=== PATIENT | female | born 1975 | race Caucasian/White ===

== ENCOUNTER → 2018-10-22 13:19 | Outpatient (CLI) | payer BC, SELFPAY ==
[2018-10-22 13:33] LABS: Internal QC Validated? YES +Cl - CLEAR BKGD; Pregnancy, Urine Negative Negative
== END ==
PROVIDERS: Family Provider Family Medicine; PCP Family Medicine; Referring Provider Internal Medicine Hematology & Oncology; Visit Provider Internal Medicine Hematology & Oncology
DX: C90.00 Multiple myeloma not having achieved remission (principal)
CPT/HCPCS: 81025

== ENCOUNTER 2019-08-18 13:00 | Outpatient (RCR) | payer BC, SELFPAY ==
--- NOTE | 2019-07-15 11:39 | HP.PTEVAL_ITS ---
Patient's Visit Information BARRERA TREJO is a 44 year old F referred to Physical Therapy by KYUNG ROPER with a diagnosis of COMPRESSION FRACTURE OF BODY OF THORACIC SPINE,MUTIPLE MYELOMA REMISSION. Date of Evaluation: 07/15/19 Physical Therapist: Phillip Harris, PT, Cert MDT, OCS - Visit Plan Frequency: 2x /Week Duration: 4 Weeks Plan: PRECAUTION AVOID FLEXION COMPREESSION FRACTURE,AND MUTLIPLE MYELOMA IN REMISSION -NO MODALITIES. PT INTERVENTION DLS,THORACIC STRENGTHENING,POSTURAL EX'S,LE STRENGTHENING - Subjective Findings: This 44 y/o female presents to physical therapy with compression fracture of thoracic spine and mutiple myeloma remission. Patient developed compression fracture Aug 2017 going steps had severe pain thoracic. Patient eventually had MRI showed T12 compression fracture and showed the multipe myeloma. Pain presisted over time but symptoms aggraveted housework ,bending lifing,leaning over doing ADL'S. Symptoms better with MEDS and rest. Seen Dr Salcido okay to try strengthening. Once patient recieved raditaion/chemo multiple myeloma in remission but conts to take revelimid. C/O parathesia fingers from chemo. Coughing/sneezing -. Bowel/bladder-.Patient condtion affects ADLS' and housework tasks.Patient sleeping okay. Patient condition affects QOL and function. 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 SOCIAL: - Pain Bilateral Back Pain Intensity (Out of 10): 4 Pain Intensity Range: 10 - Objective POSTURE: mild foward posture. NEURO: denies parathesia/tingling. PALAPTION: tender paraspinals thoracic. GAIT: reciprocal pattern. AROM: BUE WFL. MMT: BUE 4/5, BLE quads/hams 4-/5,hip flexion /abd 4-/5,ankle 4/5. LUMBAR ROM: flexion min/mod loss,extension mi loss,side glide min loss. FLEXABLITY : hams min tight - Special Tests L/S Slump test left side: Negative L/S Slump test right side: Negative L/S Left Straight Leg Raise: Negative L/S Right Straight Leg Raise: Negative - Goals Goal 1:: Independant with HEP Goal Time Frame: 4-6 Weeks Goal 2:: Patient to improve posture/body mechanics for ADL'S Goal Time Frame: 4-6 Weeks Goal 3:: Patient to decrease thoracic pain by 50% or > to improve QOL. Goal Time Frame: 4-6 Weeks Goal 4:: Patient to increase BLE strength -quads/hams/hip to 4/5 to improve function with gait. Goal Time Frame: 4-6 Weeks Goal 5:: Patient to improve back owesty score by 5 points or> to improve QOL Goal Time Frame: 4-6 Weeks - Rehabilitation Potential Physical Therapy Diagnosis: This patient had thotacic T12 compression fracture 2017 then found to have multiple myeloma with currents impairments with pain ,weakness ,LE weakness and impairs ADL'S and housework tasks. Rehabilitation Potential: Good - Anticipated Interventions Patient/Client Instruction: Educate patient on: Condition, Plan of Care For the Purpose of:: To decrease pain, To increase ROM, To improve muscle performance and motor function, To improve ability to perform ADL's, To increase tolerance to activity/condition/position, To improve ability of physical actions for home/community/work/leisure, To improve endurance, To improve ability to perform tasks related to life management Therapeutic Exercise to Include: Strength training, Body mechanics, Postural training, Scapular Strength/Stabilization Comment: THORACIC For the Purpose of:: To decrease pain, To improve muscle performance and motor function, To improve ability to perform ADL's, To increase tolerance to activity/condition/position, To improve performance and independence with ADL's, To improve ability of physical actions for home/community/work/leisure, To improve endurance, To improve ability to perform tasks related to life management Thank you for the opportunity to evaluate your patient. For Medicare and Medicare HMO plans, please review the plan of care and approve it. It will need to be FAXED BACK to us at [phone] for Medicare purposes. For Medicare only, by signing this I certify the plan of care. Please let me know if there are questions or concerns regarding this plan of care. Physician Signature: Date:
--- NOTE | 2019-08-18 13:40 | HP.PTDCSUM ---
HP - PT D/C Summary It has been my pleasure to treat BARRERA TREJO under orders from KYUNG ROPER, for the diagnosis of COMPRESSION FRACTURE OF BODY OF THORACIC SPINE,MUTIPLE MYELOMA REMISSION for a total of 9 visit(s). Discharge Date: 08/18/19 Please see the following information for a summary of their discharge status. - Subjective Subjective: Patient reports alot better ..Able to do ADL;s,job demnads.,housework tasks. - Pain Bilateral Back Pain Intensity (Out of 10): 1 - Overall Improvement % Improvement: 80 - Objective Objective/Function: POSTURE: mild foward posture. GAIT: reciprocal pattern. NEURO: INTACT. MMT: BLE 4/5,BUE 4/5. THORACIC ROM: MIN LOSS FLEXION/ROTATION ,MIN/MOD LOSS EXTENSION - Goals Goal 1:: Independant with HEP Goal Progress: Goal Met Goal 2:: Patient to improve posture/body mechanics for ADL'S Goal Progress: Goal Met Goal 3:: Patient to decrease thoracic pain by 50% or > to improve QOL. Goal Progress: Goal Met Goal 4:: Patient to increase BLE strength -quads/hams/hip to 4/5 to improve function with gait. Goal Progress: Goal Met Goal 5:: Patient to improve back owesty score by 5 points or> to improve QOL Goal Progress: Goal Met - Plan Plan: D/C TO HEP - D/C Information Discharge Comments: HEP If there are questions or concerns regarding this patient's physical therapy, please feel free to call me at [phone]. Thank you for the referral of this patient. Sincerely, Phillip Harris, PT, Cert MDT, OCS
== END 2019-08-18 19:00 | disposition home or self-care (01) ==
LOC: PT 13:00
PROVIDERS: Family Provider Family Medicine; PCP Family Medicine
DX: S22.000D Wedge compression fracture of unspecified thoracic vertebra, subsequent encounter for fracture with routine healing (principal); C90.00 Multiple myeloma not having achieved remission
CPT/HCPCS: 97110; 97162; 97530

== ENCOUNTER 2019-09-13 10:08 | Emergency (ER) | payer BC, SELFPAY ==
[2019-09-13 10:09] VITALS: BP 118/73; PULSE 114; RESP 17; TEMP 37.1; O2SAT 97; BMI 29.2
--- NOTE | 2019-09-13 10:24 | RAD_ITS ---
STUDY: X-RAY CHEST REASON FOR EXAM: Female, 44 years old. Fever after chemotherapy. TECHNIQUE: PA and lateral views of the chest. COMPARISON: Prior comparison studies are not available for review at this time. FINDINGS: There is mild patchy infiltrate in the left lower lobe. There is no demonstrated pleural abnormality. Normal size heart. Normal mediastinum and christopher. Normal visualized pulmonary arteries. Normal visualized aortic arch and descending thoracic aorta. Normal visualized thoracic spine. Normal visualized ribs, clavicles, and shoulders. There is no demonstrated abnormality of the visualized soft tissue structures of the upper abdomen. RAD/Chest PA and Lateral IMPRESSION: Mild left lower lobe infiltrate. Electronically Signed: Albin Paige MD at 11:12 EST Tel , Service support ,
--- NOTE | 2019-09-13 10:29 | ED.VISSUMM ---
- ER Visit Summary Date of Service: 09/13/19 Chief Complaint: [Fever] History of Present Illness: The patient is a 44 F [presents to the emergency department for fever that started last evening and was low-grade to 99. Patient states this morning temp over 100 and she took some Tylenol around 8 AM. Patient has had a slight cough. Patient had an episode of watery stool last evening and another one this morning. She denies any abdominal pain. She denies sore throat. She denies rashes. Patient currently being treated for multiple myeloma and her last oral chemo dose was 2 nights ago. Patient has a son at home that is had recent illness that they attributed was a viral URI. Patient denies dysuria.] Patient complains of dizziness this morning and not feeling well. Physical Examination: [HEENT-PERRLA, EOMI. Cranial nerves II through XII grossly intact. TMs clear. Mucous membranes moist. No adenopathy. No pharyngeal erythema. No exudates. Uvula midline. No trismus. Cardiovascular-regular rate and rhythm without murmur or ectopy Lungs-good aeration bilaterally. Patient has few rales in the left base. No tachypnea. No accessory muscle use or retractions. Abdomen-normoactive bowel sounds, soft, nontender, no rebound or rigidity, no peritoneal signs. Extremities-intact ?4, normal range of motion, normal pulses, atraumatic] Test Results: [CBC with differential obtained showing a 2.5, hemoglobin 11.9, hematocrit 35, platelets 70. Chemistries unremarkable other than a slight depressed potassium of 3.0. LFTs were slightly elevated with a total bilirubin of 2.1, alk phos 117, AST 50. Lactic acid was 0.9. Chest x-ray obtained showed a left lower lobe infiltrate. Urinalysis showed no signs of infection.] Emergency Department Course and Treatment: [Patient was treated with meropenem on arrival 1 g IV. Patient was started on Levaquin 750 mg IV. Case was discussed with Dr. John Cruz patient's oncologist. Will discuss case with hospitalist as well to evaluate for admission.] Treatment Plan: [Admit] Disposition: [Admit] Impression: [Pneumonia community-acquired and immune compromised patient] This note was generated with [employer] software. It may contain incorrect words, spelling, and punctuation that were not noted in review of the chart prior to signing ED Disposition - Plan for ED Patient: Referrals: Crystal Saha DO [Primary Care Provider] -
[2019-09-13 11:00] LABS: Absolute Lymphocyte Count 0.33 X10^3/uL (0.83-4.51); Absolute Neutrophil Count 2.1 X10^3/uL (2.0-7.7); Hematocrit 35.3 % (37-47); Hemoglobin 11.9 g/dL (12.0-15.0); Lymphocyte # 0.33 X10^3/ul (4.0); Mean Corp Hgb Conc 33.7 g/dL (32-36); Mean Corpuscular Hgb 33.2 pg (27.0-32.0); Mean Corpuscular Volume 98.6 fL (81-99); Mean Platelet Vol. 9.6 fl (6.2-12.0); Monocyte# 0.14 X10^3/uL; Monocyte% 5.5 % (0-10); NRBC Flagged by Analyzer 0 % (0-5); Neutrophil # 2.05 X10^3/uL (2.7-7.7); Neutrophil % 81.1 % (47-70); POSITIVE COUNT YES; POSITIVE DIFFERENTIAL YES; Platelet Count 70 K/mm3 (150-450); RBC Distribution Width CV 13.3 % (11.6-14.6); RBC Distribution Width SD 47.5 fl (35.1-43.9); Red Blood Count 3.58 M/mm3 (4.2-5.4); White Blood Count 2.5 K/mm3 (4.4-11.0)
[2019-09-13 11:01] LABS: Differential Indicated SCAN CRITERIA MET
[2019-09-13 11:06] LABS: Red Blood Cells-Urine 0 SEEN /hpf (0-5)
[2019-09-13 11:09] LABS: Color, Urine Yellow (Yellow); Glucose, Dipstick Normal (Normal); Ketone-Dipstick 50 mg/dl (Negative); Leukocyte Esterase-Dipstick 25 /ul (Negative); Nitrite-Dipstick Negative (Negative); Occult Blood-Urine 10 /ul (Negative); Protein-Dipstick 100 mg/dl (Negative); Urine Clarity Clear (Clear); Urine Urobilinogen 1 mg/dl (Normal)
[2019-09-13 11:12] LABS: Urine Bilirubin Dipstick 1 mg/dL (Negative)
[2019-09-13 11:13] LABS: ALB/GLOB Ratio 0.9 RATIO (0.9-2.4); AST(SGOT) 50 U/L (15-37); Alanine Aminotransfer ALT/SGPT 117 U/L (13-56); Albumin, Serum 3.7 g/dL (3.2-5.0); Alkaline Phosphatase 85 U/L (45-117); Anion Gap 10 (5-15); BUN 10 mg/dL (7-18); BUN/Creat Ratio 10.6 RATIO (10-20); Calcium,Total 8.3 mg/dL (8.5-10.1); Chloride 104 mmol/L (98-107); Creatinine, Serum 0.94 mg/dL (0.55-1.02); EST Glomerular Filtration Rate 68 mL/min (>60); Est Glom Filt Rate - Afr Amer 82 mL/min (>60); Estimated Creatinine Clearance 53.72 ml/min; Glucose 117 mg/dL (74-106); Protein, Total 7.7 g/dL (6.4-8.2); Sodium Level 136 mmol/L (136-145)
[2019-09-13] MEDS: 0.9% Normal Saline 1,000 ML 1000 ML IV (11:16)
[2019-09-13 11:17] LABS: Bacteria 1+ /hpf (None Seen); Mucous, Urine 1+ /hpf (<or=2+); Squamous Epithelial Cells - UA 0-5 SEEN /hpf (5-10); White Blood Cells 0-5 SEEN /hpf (0-5)
[2019-09-13 11:17] LABS: Lactic Acid 0.9 mmol/L (0.4-1.9)
[2019-09-13 11:19] LABS: Differential Comment SCANNED
[2019-09-13 11:20] LABS: Platelet Estimate MOD DEC (ADEQ)
[2019-09-13] MEDS: levoFLOXacin IV 750 MG/150 ML BAG 100 MG IV (11:27)
--- NOTE | 2019-09-13 12:15 | PCM.PN.HOSP ---
Subjective: 44-year-old female with a history of multiple myeloma. She is currently in remission and on maintenance therapy with Revlimid every 3 weeks with a 1 week break. She started feeling sick 24 to 48 hours ago. Initially was thought to be viral-like syndrome because her son is sick with a viral URI however last night she spiked a temperature to about 101.8 and she called her oncologist who called her in a prescription for Levaquin. However today she was feeling much weaker and decided to present to the ER, where she was found to be leukopenic with an absolute neutrophil count of 2.1 and a chest x-ray indicating a left lower lobe pneumonia. She also had some episodes of dizziness and watery diarrhea. She says she normally has loose stools on the Revlimid but this was more significant than her normal. She denies any significant cough, or abdominal pain. Vitals/I&O's: Vital Signs Temp Pulse Resp BP Pulse Ox 98.8 F 114 H 17 118/73 97 09/13/19 10:09/13/19 10:09/13/19 10:09/13/19 10:09/13/19 10:09 Oxygen Delivery Method Room Air Weight: 150 lb Body Mass Index (BMI) 29.2 General: Alert, Oriented x3, Cooperative, No apparent distress HEENT: Atraumatic, Normocephalic Neck: Supple Lungs: Normal air movement, No wheeze, Rhonchi - Left lower lobe Cardiovascular: Regular rate, Regular Rhythm, Normal S1, Normal S2, No murmurs Abdomen: Soft, Non Tender, Non-Distended, No Hepato-splenomegaly Extremities: No cyanosis, No edema Skin: - - There is a bruise on the left anterior tibia Neurological: Neuro grossly intact Psych/Mental Status: Normal Affect, Appropriate Microbiology Past 72 Hours 09/13/19 10:53 Mucosa - Nose Influenza Types A,B Direct FA (JUSTIN) - Final Laboratory Results 09/13/19 10:50: WBC 2.5 L, RBC 3.58 L, Hgb 11.9 L, Hct 35.3 L, MCV 98.6, MCH 33.2 H, MCHC 33.7, RDW Std Deviation 47.5 H, RDW Coeff of Alfa 13.3, Plt Count 70 L, MPV 9.6, Immature Gran % (Auto) 0.400, Neut % (Auto) 81.1 H, Lymph % (Auto) 13.0 L, [place] % (Auto) 5.5, Eos % (Auto) 0.0, Baso % (Auto) 0.0, Absolute Neuts (auto) 2.1, Absolute Lymphs (auto) 0.33 L, Nucleated RBC % 0, Differential Comment SCANNED, Platelet Estimate MOD DEC 09/13/19 10:50: Sodium 136, Potassium 3.0 L, Chloride 104, Carbon Dioxide 22.0, Anion Gap 10, BUN 10, Creatinine 0.94, Estim Creat Clear Calc 53.72, Est GFR (MDRD) Af Amer 82, Est GFR (MDRD) Non-Af 68, BUN/Creatinine Ratio 10.6, Glucose 117 H, Calcium 8.3 L, Total Bilirubin 2.10 H, AST 50 H, ALT 117 H, Alkaline Phosphatase 85, Total Protein 7.7, Albumin 3.7, Globulin 4.0, Albumin/Globulin Ratio 0.9 09/13/19 10:50: Lactic Acid 0.9 09/13/19 10:55: Urine Color Yellow, Urine Clarity Clear, Urine pH 6.0, Ur Specific [place] 1.020, Urine Protein 100 H, Urine Glucose (UA) Normal, Urine Ketones 50 H, Urine Occult Blood 10 H, Urine Nitrite Negative, Urine Bilirubin 1 H, Urine Urobilinogen 1 H, Ur Leukocyte Esterase 25 H, Urine RBC 0 SEEN, Urine WBC 0-5 SEEN, Ur Squamous Epith Cells 0-5 SEEN, Urine Bacteria 1+, Urine Mucus 1+ Current Medications Sodium Chloride () 1,000 mls @ 150 mls/hr IV .[id number] YULISA Levofloxacin (Levaquin Iv) 750 mg in 150 mls @ 100 mls/hr IV X1 ONE Stop: 09/13/19 12:44 Last Admin: 09/13/19 11:27 Dose: 100 mls/hr Documented by: STROKE Vital Signs/Narrative: Vital Signs Temp Pulse Resp BP Pulse Ox 09/13/19 10:09 98.8 F 114 H 17 118/73 97 Medical Necessity - Tobacco Use Smoking Status: Never smoker Assessment/Plan All Active Problems (Last Reviewed 08/12/17 @ 08:15 by Yaritza Humphries) Segmental and somatic dysfunction of thoracic region (Acute) Segmental and somatic dysfunction of lumbar region (Acute) Segmental and somatic dysfunction of sacral region (Acute) 1. Left lower lobe community-acquired pneumonia likely from gram-positive organism -I discussed the options with her about either staying for IV fluids and continued antibiotic, however she would prefer to go home. She understands the risks and benefits of going home and she already has antibiotics at home as well as having received both meropenem and Levaquin IV here in the ER. -She currently is afebrile and oxygenating at 97% on room air -Physical exam does confirm a left lower lobe pneumonia -Would continue the Levaquin prescribed by her oncologist as well as taking any antinausea medication she has at home at least in the beginning to make sure that she is able to tolerate treatment -She did also have some hypokalemia here in the hospital with potassium of 3, she states that she is on potassium at home but she did not take it this morning -If she has any worsening fevers, nausea, vomiting, diarrhea, or shortness of breath she is instructed to present back to the ER. 2. Multiple myeloma in remission -We will have her discussed with her oncologist when to restart her Revlimid -She was reaching the end of her current 3-week cycle I believe on Saturday -If necessary she can was present to the oncology office for fluids -She does not have a significant history of neutropenia Code Visit Inpatient E&M: [id number] Subs Hosp L2
--- NOTE | 2019-09-13 12:16 | ED.DEP ---
ED Disposition - Plan for ED Patient: Instructions: Pneumonia Referrals: Crystal Saha DO [Primary Care Provider] - 3-5 Days John Cruz DO [STAFF PHYSICIAN] - 3-5 Days
[2019-09-13 12:51] VITALS: BP 124/76; PULSE 99; RESP 16; O2SAT 100
[2019-09-13 13:31] VITALS: BP 98/67; PULSE 96; RESP 19; TEMP 37.3; O2SAT 98
== END 2019-09-13 13:32 | disposition home or self-care (01) ==
LOC: ED 10:38
PROVIDERS: Emergency Provider Emergency Medicine; Family Provider Family Medicine; PCP Family Medicine
DX: A41.9 Sepsis, unspecified organism (principal); J18.9 Pneumonia, unspecified organism; C90.01 Multiple myeloma in remission; E87.6 Hypokalemia; M99.02 Segmental and somatic dysfunction of thoracic region; M99.03 Segmental and somatic dysfunction of lumbar region; M99.04 Segmental and somatic dysfunction of sacral region; Z79.899 Other long term (current) drug therapy
CPT/HCPCS: 71046; 80053; 81001; 83605; 85025; 87040; 87086; 87088; 87804; 96365; 96367; 99283; J2185; J7030; A4216

== ENCOUNTER → 2020-05-19 17:21 | Outpatient (CLI) | payer BC, SELFPAY | PROVIDERS: PCP Family Medicine | DX: Z11.59 Encounter for screening for other viral diseases (principal) | CPT/HCPCS: 87635; C9803; U0003 ==

== ENCOUNTER 2021-04-26 11:30 | Outpatient (RCR) | payer BC, SELFPAY ==
--- NOTE | 2021-03-08 13:46 | HP.PTEVAL_ITS ---
Patient's Visit Information BARRERA TREJO is a 46 year old F referred to Physical Therapy by Dr. Crystal Saha DO with a diagnosis of remission multiple myeloma. Date of Evaluation: 03/08/21 Physical Therapist: RENETTA Bruce - Visit Plan Frequency: 2x /Week Duration: 4 Weeks Plan: 2X/ week for 4 weeks for core stability, Hip strength (hip flexor) strength, stretching of LE and trunk, postural exercises, with HEP. Please give some HEP curently and then gear towards [employer] membership. HEP: yung pose fw and lateral B, PT with abdom brace, (did seated hip flex 2 X 10 but did not give for home) Standing PT with hip flex 2 X 10 B - Subjective Pt has multiple myeloma and compression fx when first diagnosed and some cord compression but did feel some Quads were weak but she feels that they have gotten weaker and she feels that it is because she worked from home and has deconditioned. [place] really make her weakness come out. She still has some back pain that PT helped with the myeloma and she did join as a member but then COVID shut it down. She does walk and her neighborhood is pretty [place]. Stairs: she does ok on stairs but going down she notices the weakness and she uses the railing. Sit to stand: able to do it without using her arms. No falls. She would be able to get up from the floor if she were to fall. - Pain Back pain Pain Intensity (Out of 10): 1 - Objective Gait: Normal gait pattern. Able to walk on heels and toes without signs of imbalance or weakness. Patella DTR's 0/3 B. Trunk AROM: flexion 100%. LE MMT: Increase LE strength by 1/2 muscle grade (at time of eval: B hip flex 4- /5, B knee ext 4/5 and B Knee flex 4-/5, B hip ext 4-/5, B hip abd 4/5, able to walk on heels and toes). Bridges with leg lifts increases B hip drop indicating weakness. Instructed pt in PT with abdom bracing... - Goals Goal 1:: I HEP Goal Time Frame: 4-6 Weeks Goal 2:: Increase LE strength by 1/2 muscle grade (at time of eval: B hip flex 4-/5, B knee ext 4/5 and B Knee flex 4-/5, B hip ext 4-/5, B hip abd 4/5, able to walk on heels and toes) Goal Time Frame: 4-6 Weeks Goal 3:: Be able to walk down a hill and not feel the B Quad/ hip flexor weakness Goal Time Frame: 4-6 Weeks Goal 4:: Be able to descend steps without feeling the weakness in her Quads Goal Time Frame: 4-6 Weeks - Rehabilitation Potential Rehabilitation Potential: Good - Anticipated Interventions Patient/Client Instruction: Educate patient on: Condition, Plan of Care For the Purpose of:: To improve nutrient delivery to tissue, To improve muscle performance and motor function, To improve ability to perform ADL's, To increase tolerance to activity/condition/position, To improve performance and independence with ADL's, To improve ability of physical actions for home/community/work/leisure, To improve gait and locomotor functions Therapeutic Exercise to Include: Strength training, Endurance training, Balance training, Postural training, Dynamic Lumbar Stabilization, Scapular Strength/Stabilization For the Purpose of:: To decrease pain, To improve muscle performance and motor function, To improve ability to perform ADL's, To increase tolerance to activity/condition/position, To improve performance and independence with ADL's, To improve ability of physical actions for home/community/work/leisure, To increase flexibility/ROM, To improve endurance, To improve balance Thank you for the opportunity to evaluate your patient. For Medicare and Medicare HMO plans, please review the plan of care and approve it. It will need to be FAXED BACK to us at [phone] for Medicare purposes. For Medicare only, by signing this I certify the plan of care. Please let me know if there are questions or concerns regarding this plan of care. Physician Signature: Date:
--- NOTE | 2021-04-26 11:54 | HP.PTDCSUM ---
It has been my pleasure to treat BARRERA TREJO referred by Dr. Crystal Saha DO, with the diagnosis of remission multiple myeloma for a total of 8 visit(s). Discharge Date: 04/26/21 Please see the following information for a summary of their discharge status. Subjective: Pt got the booster for COVID and the fatigue set in. Pt feels that she is much better. She does not get the spasms anymore and the Maria Esther Pose has helped. She has had some strength return but not sure how much she will get. Pt thought had be to keep up with band exercises at home and walk and squats at home as well and that is hard. She wants to do HP but wants to wait to Delta dies down first. Pt no longer has to take Tylenol twice a day anymore. Pt has noticed improvement in stamina. Pt is encouraged that she can do things with out extra equipment. Back pain Pain Intensity (Out of 10): 0 % Improvement: 20 Objective/Function: Pt still notices the weakness in her legs when going down the stairs but it has improved. Stairs: up and down stairs recip with no hand rail without any signs of weakness. LE MMT: B hip flex 4/5, B knee ext 4/5 and B Knee flex 4-/5, B hip ext 4/5, B hip abd 4+/5, able to walk on heels and toes) Goal 1:: I HEP Goal Progress: Goal Met Goal 2:: Increase LE strength by 1/2 muscle grade (at time of eval: B hip flex 4-/5, B knee ext 4/5 and B Knee flex 4-/5, B hip ext 4-/5, B hip abd 4/5, able to walk on heels and toes) Goal Progress: Progressing Goal 3:: Be able to walk down a hill and not feel the B Quad/ hip flexor weakness Goal Progress: Progressing Goal 4:: Be able to descend steps without feeling the weakness in her Quads Goal Progress: Goal Met Plan: DC PT to HEP Discharge Comments: DC PT to HEP If there are questions or concerns regarding this patient's physical therapy, please feel free to call me at [phone]. Thank you for the referral of this patient. Sincerely, Emily Power, MPT Balance/Gait/Functional tests - Balance/Special Test Scores Lower Extremity Functional Score: 72
== END 2021-04-26 13:56 | disposition home or self-care (01) ==
LOC: PT 11:30
PROVIDERS: PCP Family Medicine; Referring Provider Family Medicine; Visit Provider Family Medicine
DX: C90.01 Multiple myeloma in remission (principal)
CPT/HCPCS: 97110; 97161; 97530